=== PATIENT | female | born 1995 | race African-American/Black ===

== ENCOUNTER 2017-03-10 09:39 | Emergency (ER) | payer MEDICAID ==
[~2017-03-10] VITALS: Ht 160 cm; Wt 52.0 kg
[2017-03-10] MEDS ORDERED: IBUPROFEN 600MG TABLET PO ONE (13:00)
[2017-03-10 13:03] VITALS: BP 121/78
[2017-03-10] MEDS ORDERED: SODIUM CHLORIDE 0.9% 1,000 ML IV ONE (14:06)
[2017-03-10 14:56] LABS: HEMATOCRIT. 35.8 % (36.0-48.0); MEAN CORPUSCULAR HEMOGLOBIN 29.8 pg (28.0-32.0); MEAN CORPUSCULAR VOLUME 89.1 fL (81.0-99.0); MEAN PLATELET VOLUME 9.6 fl (7.4-10.4); PLATELET 219 x1000/uL (130-400); RED BLOOD CELL COUNT 4.02 mill/uL (4.2-5.4); RED CELL DISTRIBUTION WIDTH 12.9 % (11.6-14.6)
[2017-03-10 14:58] LABS: CHLORIDE 107 mEq/L (98-107)
[2017-03-10 15:07] LABS: CARBON DIOXIDE 23 mEq/L (21-32)
[2017-03-10 16:02] LABS: PLATELET ESTIMATE NORMAL
== END 2017-03-10 15:55 | disposition home or self-care (01) ==
LOC: ER 10:44
DX: J06.9 Acute upper respiratory infection, unspecified (principal); R03.0 Elevated blood-pressure reading, without diagnosis of hypertension; J45.909 Unspecified asthma, uncomplicated
CPT/HCPCS: 36415; 71045; 80053; 85025; 87804; 96360; 99285; J7030